=== PATIENT | female | born 1980 | race Caucasian/White ===

== ENCOUNTER 2017-06-29 16:53 | Emergency (ER) | payer BC ==
[2017-06-29 19:31] VITALS: BP 120/77
--- NOTE | 2017-06-29 19:38 | UC ---
FLU HPI - HPI Summary HPI Summary: 37 y/o female presents to the urgent care c/o fever, coughing, sore throat, b/l earache x1 week. Headache last 3 days. Nausea/upset stomach since Thursday. Pt has taking ibuprofen w/ sudafed, bettie-seltzer prn w/ no relief. Pt denies SOB, chest pain, abdominal pain, N/V/D - History of Current Complaint Chief Complaint: UCRespiratory Stated Complaint: HEADACHE, FEVER, COUGH Time Seen by Provider: 06/29/17 19:36 Hx Obtained From: Patient Hx Last Menstrual Period: MIRENA IUD ?: No Onset/Duration: Gradual Onset, Lasting Days - 5 days, Still Present, Worse Since - yesteday Severity Currently: Mild Severity Initially: Moderate Pain Intensity: 5 Pain Scale Used: 0-10 Numeric Associated Signs & Symptoms: Positive: Fever, Myalgia, Cough, Sore Throat, Nasal Congestion, Headache - Risk Factors Influenza Risk Factors: Negative - Allergy/Home Medications Allergies/Adverse Reactions: Allergies Allergy/AdvReac Type Severity Reaction Status Date / Time No Known Allergies Allergy Verified 06/29/17 19:25 Home Medications: Home Medications Venlafaxine ER (NF) [Effexor ER (NF)] 1 cap DAILY 06/29/17 [History Confirmed ] PMH/Surg Hx/FS Hx/Imm Hx Previously Healthy: Yes - Pt denies PMHX - Surgical History Surgical History: Yes Surgery Procedure, Year, and Place: Appendix - Family History Known Family History: Positive: Hypertension, Diabetes - Social History Occupation: Employed Full-time Lives: With Family Alcohol Use: Occasionally Substance Use Type: None Smoking Status (MU): Never Smoked Tobacco Review of Systems Constitutional: Fever, Chills, Fatigue, Other - body aches Skin: Negative Eyes: Negative ENT: Sore Throat, Ear Ache - B/L ear pain, Nasal Discharge, Sinus Congestion Respiratory: Cough Cardiovascular: Negative Gastrointestinal: Negative Genitourinary: Negative Motor: Negative Neurovascular: Negative Musculoskeletal: Negative Neurological: Headache Psychological: Negative Is Patient Immunocompromised?: No All Other Systems Reviewed And Are Negative: Yes Physical Exam Triage Information Reviewed: Yes Vital Signs: Initial Vital Signs Temp 98 F 06/29/17 19:25 Pulse 81 06/29/17 19:25 Resp 16 06/29/17 19:25 BP 120/77 03/05/18 19:25 Pulse Ox 100 06/29/17 19:25 - Additional Comments VITAL SIGNS: Reviewed. GENERAL: Patient is a well developed and nourished female who is sitting comfortable in the examining table. Patient is not in any acute respiratory distress. HEAD AND FACE: No signs of trauma. No ecchymosis, hematomas or skull depressions. No sinus tenderness. edematous erythematous nasal mucosa with yellowish discharge, EYES: PERRLA, EOMI x 2, No injected conjunctiva, clear watery eyes, no nystagmus. No photophobia. EARS: Hearing grossly intact. Ear canals and tympanic membranes are within normal limits. MOUTH: Positive pharynx with erythema, no exudates,no palatal petechiae. no B/ L tonsillar enlargement Uvula in midline. NECK: Supple, trachea is midline, Positive anterior cervical lymphadenopathy, no JVD, no carotid bruit, no c-spine tenderness, neck with full ROM. No meningeal signs, no Kernig's or brudzinskis signs. CHEST: Symmetric, no tenderness at palpation LUNGS: Clear to auscultation bilaterally. No wheezing or crackles. CVS: Regular rate and rhythm, S1 and S2 present, no murmurs or gallops appreciated. ABDOMEN: Soft, non-tender. No signs of distention. No rebound no guarding, and no masses palpated. Bowel sounds are normal. EXTREMITIES: FROM in all major joints, no edema, no cyanosis or clubbing. NEURO: Alert and oriented x 3. No acute neurological deficits. Speech is normal and follows commands. SKIN: Dry and warm Flu Course/Dx - Course Course Of Treatment: 37 y/o female presents to the urgent care c/o fever, coughing, sore throat, b/l earache x1 week. Headache last 3 days. Nausea/upset stomach since Thursday. Pt has taking ibuprofen w/ sudafed, bettie-seltzer prn w/ no relief. Pt denies SOB, chest pain, abdominal pain, N/V/D. Hx obtained. Pt w/ URI on examination.Influenza A&B ordered: result: Influenza B positive.Pt Rx Tamiflu. Advised on hand washing and wear a mask to avoid spreading. Pt advised to rest, increase fluid intake, eat well and avoid strenuous exercise. If symptoms do not improve or worsen advised to return to the urgent care or f/u with her PCP for further evaluation and treatment. Pt understood and agreed with plan of care. - Differential Dx/Diagnosis Differential Diagnosis/HQI/PQRI: Bronchitis, Influenza, Pneumonia, Upper Respiratory Infection Provider Diagnoses: 1- Influenza B Discharge - Discharge Plan Condition: Stable Disposition: HOME Prescriptions: Oseltamivir CAP* [Tamiflu CAP*] 75 mg PO BID #10 cap Patient Education Materials: Influenza (ED) Forms: *Work Release Referrals: Georgie Ireland MD [Primary Care Provider] - 3 Days Additional Instructions: 1- Please take the full course of the antiviral to avoid resistance. Encourage hand washing and wear a mask to avoid spreading. 2-Please continue taking Ibuprofen/ Tylenol PO q6-8hrs prn as instructed after meals to alleviate fever, and sore throat. Increase fluid intake, eat well, rest and avoid strenuous exercise 3-If symptoms do not improve or worsen please return to the urgent care or f/u with your PCP in 2 days for further evaluation and treatment.
== END 2017-06-29 20:10 | disposition home or self-care (01) ==
LOC: UCCORT 16:53
DX: J10.1 Influenza due to other identified influenza virus with other respiratory manifestations (principal)
CPT/HCPCS: 87502; 99212; G0463

== ENCOUNTER 2017-10-24 12:24 | Emergency (ER) | payer BC ==
--- NOTE | 2017-10-24 15:17 | UC ---
Cardiac HPI - HPI Summary HPI Summary: C/O left upper chest pain x 3-4 days. Worse with deep breathing and certain movements. Better with Ibuprofen. No fevers/ cough. Some sweats on the increased venlafaxine. ? SOB. No nausea. Not worse with exertion. - History of Current Complaint Chief Complaint: UCBackPain Stated Complaint: CHEST PAIN Time Seen by Provider: 10/24/17 15:07 Hx Obtained From: Patient Hx Last Menstrual Period: 10/18/17 Onset/Duration: Sudden Onset, Lasting Days - 4, Worse Since - onset Timing: Constant Initial Severity: Moderate Pain Intensity: 7 Chest Pain Location: Left Anterior - some radiation into the left upper back under the shoulder blade Character: Sharp/Stabbing Aggravating Factor(s): Movement, Deep Breaths Alleviating Factor(s): Rest, Position Associated Signs & Symptoms: Positive: Chest Pain, Anxiety, SOB - just taking shallow breaths to decrease the pain., Back Pain. Negative: Fever, Diaphoresis , Palpitations, Cough, Hemoptysis - Risk Factors Pulmonary Embolism Risk Factors: Negative Cardiac Risk Factors: Family History - Allergy/Home Medications Allergies/Adverse Reactions: Allergies Allergy/AdvReac Type Severity Reaction Status Date / Time No Known Allergies Allergy Verified 10/24/17 12:46 PMH/Surg Hx/FS Hx/Imm Hx Psychological History: Anxiety, Depression - Surgical History Surgical History: Yes Surgery Procedure, Year, and Place: Appendix - Family History Known Family History: Positive: Cardiac Disease, Hypertension, Diabetes - Social History Alcohol Use: Occasionally Substance Use Type: None Smoking Status (MU): Never Smoked Tobacco Review of Systems Skin: Bruising Cardiovascular: Chest Pain Is Patient Immunocompromised?: No All Other Systems Reviewed And Are Negative: Yes Physical Exam Triage Information Reviewed: Yes Appearance: Well-Appearing, No Pain Distress - at rest, Well-Nourished, Pain Distress - with deep breaths Vital Signs: Initial Vital Signs Temp 99.6 F 10/24/17 12:40 Pulse 86 10/24/17 12:40 Resp 14 10/24/17 12:40 BP 114/76 10/24/17 12:40 Pulse Ox 100 10/24/17 12:40 Vital Signs Reviewed: Yes Eyes: Positive: Conjunctiva Clear Neck exam: Normal Respiratory Exam: Normal - but splinting respirations. Respiratory: Positive: Other: - No chest wall tenderness. Cardiovascular: Positive: RRR, Murmur:Sys:Grade _?_/ - 2/6 Abdomen Description: Positive: No Organomegaly, Soft. Negative: Nontender - mild LLQ tenderness, McBurney's Point Tenderness, Peritoneal Signs Bowel Sounds: Positive: Present Musculoskeletal: Positive: Other: - tenderness in the left lower trapezius/ rhomboid Diagnostics - Radiology No standard instances Xray Interpretation: No Acute Changes Radiology Interpretation Completed By: Radiologist - Differential Diagnoses - Chest Pain Differential Diagnosis/HQI/PQRI: Acute HI, Aortic Aneurysm, Chest Wall, Pulmonary Embolism - Clinical Impression Provider Diagnoses: Musculoskeletal chest wall pain. Discharge - Sign-Out/Discharge Documenting (check all that apply): Discharge/Admit/Transfer - Discharge Plan Condition: Stable Disposition: HOME Prescriptions: Cyclobenzaprine TAB* [Flexeril 10 MG TAB*] 10 mg PO BID PRN #20 tab PRN Reason: Pain - Chest Ketorolac TAB * [Toradol TAB *] 10 mg PO Q6H PRN #20 tab PRN Reason: Pain - Chest Patient Education Materials: Chest Wall Pain (ED), Thoracic Pain (ED), Cyclobenzaprine (By mouth), Ketorolac (By mouth) Referrals: Himanshu Nj MD [Primary Care Provider] - - Billing Disposition and Condition Condition: STABLE Disposition: Home
[2017-10-24] MEDS ORDERED: Ketorolac INJ* 60 MG/2 ML VIAL IM ONE (15:31)
--- NOTE | 2017-10-24 15:57 | RAD ---
Indication: Chest pain. 2 views of the chest including dual energy PA views demonstrate no mediastinal shift. Heart is of normal size and configuration. Lung davis are clear. IMPRESSION: No active cardiopulmonary disease is noted.
[2017-10-24 16:00] VITALS: BP 105/76
== END 2017-10-24 16:20 | disposition home or self-care (01) ==
LOC: UCCORT 12:24
DX: R07.89 Other chest pain (principal)
CPT/HCPCS: 71046; 93005; 96372; 99212; G0463; J1885

== ENCOUNTER 2018-01-14 12:52 | Emergency (ER) | payer BC | END 2018-01-14 16:34 | disposition home or self-care (01) | LOC: UCCORT 12:52 | DX: J02.0 Streptococcal pharyngitis (principal); H69.82 Other specified disorders of Eustachian tube, left ear | CPT/HCPCS: 87651; 99212; G0463 ==